=== PATIENT | female | born 1985 | race African-American/Black ===

== ENCOUNTER 2024-03-23 16:04 | Emergency (ER) | payer SELFPAY ==
[~2024-03-23] VITALS: Ht 165.1 cm; Wt 94.5 kg
[~2024-03-23 16:04] MED LIST: CEPHALEXIN500 M1 PO; FLEXERIL 1010 MG/TAB PO
[2024-03-23 17:59] VITALS: TEMP 98.2
[2024-03-23] MEDS ORDERED: oxyCODONE/Acetaminophen 5-325 MG TAB PO ONE (18:00)
[2024-03-23] MEDS ORDERED: Home Cyclobenzaprine 10 MG #2 TABS/PACK PO ONE (19:45)
[2024-03-23] MEDS ORDERED: FLEXERIL 1010 MG/TAB PO (19:48)
[2024-03-23 20:00] VITALS: BP 119/59; PULSE 71
[2024-03-24] MEDS ORDERED: TORADOL 10MG TA10 MG PO (20:55)
[2024-03-24] MEDS ORDERED: ZOFRAN ODT4 MG PO (20:56)
== END 2024-03-23 20:00 | disposition home or self-care (01) ==
LOC: COL.ER 16:04
DX: S16.1XXA Strain of muscle, fascia and tendon at neck level, initial encounter (principal); S70.01XA Contusion of right hip, initial encounter; S80.01XA Contusion of right knee, initial encounter; S09.90XA Unspecified injury of head, initial encounter; V43.52XA Car driver injured in collision with other type car in traffic accident, initial encounter; Y92.410 Unspecified street and highway as the place of occurrence of the external cause
CPT/HCPCS: L1830; L1846

== ENCOUNTER 2024-03-24 18:46 | Emergency (ER) | payer SELFPAY ==
[~2024-03-24] VITALS: Ht 165.1 cm; Wt 94.5 kg
[2024-03-24 18:51] VITALS: BP 127/79; TEMP 98.3
[2024-03-24] MEDS ORDERED: TORADOL 10MG TA10 MG PO (20:55)
[2024-03-24] MEDS ORDERED: ZOFRAN ODT4 MG PO (20:56)
[2024-03-24] MEDS ORDERED: Ketorolac 30 MG/ML VIAL IM ONE (21:00)
[2024-03-24 21:10] VITALS: PULSE 82
== END 2024-03-24 21:10 | disposition home or self-care (01) ==
LOC: COL.ER 18:46
DX: M25.532 Pain in left wrist (principal); V89.2XXA Person injured in unspecified motor-vehicle accident, traffic, initial encounter
CPT/HCPCS: J1885